=== PATIENT | male | born 1965 | race Asian ===

== ENCOUNTER 2021-08-02 11:24 | Emergency (ER) | payer OTHER, MEDICAID ==
[~2021-08-02] VITALS: Ht 172.7 cm; Wt 74.8 kg
[2021-08-02] MEDS ORDERED: MULTIVITAMINS (11:44)
[2021-08-02] MEDS ORDERED: METFORMIN (11:44)
[2021-08-02] MEDS ORDERED: ASPI81TA31 PO (11:44)
[2021-08-02] MEDS ORDERED: ATENOLOL (11:44)
[2021-08-02] MEDS ORDERED: LOSARTAN (11:44)
[2021-08-02] MEDS ORDERED: ASCO500C18 PO (12:00)
[2021-08-02] MEDS ORDERED: LOSA50TA39 PO (12:00)
[2021-08-02] MEDS ORDERED: DOXA2TAB2 PO (12:00)
[2021-08-02] MEDS ORDERED: [UNRECOGNIZED DRUG - OTHER] (12:00)
[2021-08-02] MEDS ORDERED: [UNRECOGNIZED DRUG - OTHER] (12:00)
[2021-08-02] MEDS ORDERED: METF-442 PO (12:00)
[2021-08-02] MEDS ORDERED: ATEN50TA PO (12:00)
[2021-08-02] MEDS ORDERED: DOXY-326 PO (12:00)
[2021-08-02 12:02] LABS: HEMATOCRIT 30.9 % (36.7-47.1); MEAN CORPUSCULAR VOLUME 89.2 fL (73.0-96.2); PLATELET COUNT (AUTO) 213 K/uL (152-348)
[2021-08-02 12:18] LABS: ALANINE AMINOTRANSFERASE 40 U/L (16-63); ALKALINE PHOSPHATASE 53 U/L (50-136); ASPARTATE AMINOTRANSFERASE 13 U/L (15-37); BILIRUBIN,DIRECT 0.1 mg/dL (0.0-0.2); BILIRUBIN,TOTAL 0.3 mg/dL (0.2-1.0); CARBON DIOXIDE 25 mmol/L (21-32); CHLORIDE 103 mmol/L (98-107); CREATININE 1.4 mg/dL (0.6-1.3); GLUCOSE 247 mg/dL (74-106); POTASSIUM 4.6 mmol/L (3.5-5.1); TOTAL PROTEIN, SERUM 5.9 g/dL (6.4-8.2); UREA NITROGEN, BLOOD 38 mg/dL (7-18)
[2021-08-02 12:23] LABS: ACETAMINOPHEN < 2.0 ug/mL (10-30); THYROID STIMULATING HORMONE 0.584 mIU/mL (0.358-3.740)
[2021-08-02] MEDS ORDERED: DEXAMETHASONE SOD PHOSPHATE 4 MG INJ IV ONE (12:30)
[2021-08-02] MEDS ORDERED: IV NORMAL SALINE 1000 ML BAG IV ONE (12:30)
[2021-08-02] MEDS ORDERED: CEFTRIAXONE 2 G in IV DEXTROSE 5% 100 ML IV ONE (12:30)
[2021-08-02 12:36] LABS: ETHANOL < 3 MG/DL (0-0)
[2021-08-02] MEDS ORDERED: CEFTRIAXONE /D5W 50ML IVPB **ER PYXIS IV ONE (12:39)
[2021-08-02] MEDS ORDERED: DEXAMETHASONE SOD PHOSPHATE 4 MG INJ ONE (12:40)
[2021-08-02 12:41] LABS: *BILIRUBIN,URIN NEGATIVE (NEGATIVE); *BLOOD, URINE NEGATIVE (NEGATIVE); *CLARITY,URINE CLEAR (CLEAR); *COLOR,URINE YELLOW (YELLOW); *KETONES,URINE TRACE (NEGATIVE); *UROBILINOGEN,URINE 0.2 E.U./dl (NORMAL); LEUKOCYTE ESTERASE ,URINE NEGATIVE (NEGATIVE); NITRITE, URINE NEGATIVE (NEGATIVE); PH,URINE 5.5 (5.0-8.0); UGLUCOSE NEGATIVE (NEGATIVE)
[2021-08-02 12:52] LABS: *AMPHETAMINE, URINE NEGATIVE (NEGATIVE); *CANNABINOID, URINE NEGATIVE (NEGATIVE); *COCCAINE, URINE NEGATIVE (NEGATIVE); *OPIATE, URINE NEGATIVE (NEGATIVE); *PHENCYCLIDINE SCREEN,URINE NEGATIVE (NEGATIVE)
[2021-08-02] MEDS ORDERED: IV NORMAL SALINE 250 ML IV ONE (14:14)
[2021-08-02 14:15] LABS: *OCCULT BLOOD STOOL POSITIVE (NEGATIVE)
[2021-08-02] MEDS ORDERED: IOHEXOL 350 100 ML INFUS..BTL ONE (14:15)
[2021-08-02] MEDS ORDERED: SWABABLE VALVE TRANSFER SET EA MC ONE (14:15)
[2021-08-02 14:27] LABS: HEMATOCRIT 27.5 % (36.7-47.1); MEAN CORPUSCULAR HEMOGLOBIN 30.2 uug (23.8-33.4); MEAN CORPUSCULAR VOLUME 88.7 fL (73.0-96.2); PLATELET COUNT (AUTO) 186 K/uL (152-348)
== END 2021-08-02 20:58 | disposition short-term general hospital (02) ==
LOC: ER 11:24
DX: K92.2 Gastrointestinal hemorrhage, unspecified (principal); R57.1 Hypovolemic shock; R55 Syncope and collapse; Z20.822 Contact with and (suspected) exposure to COVID-19; I10 Essential (primary) hypertension; E11.9 Type 2 diabetes mellitus without complications; Z79.84 Long term (current) use of oral hypoglycemic drugs; Z79.82 Long term (current) use of aspirin; Z79.899 Other long term (current) drug therapy; Z86.03 Personal history of neoplasm of uncertain behavior
CPT/HCPCS: 36415; 70450; 71045; 71275; 83605; 84443; 84484; 85025; 85730; 87040; 87086; 93005; A4663; G0480; J0696; J1100; J7040; Q9967